=== PATIENT | male | born 1960 | race Caucasian/White ===

== ENCOUNTER 2025-01-25 17:04 | Emergency (ER) | payer BC, SELFPAY ==
[2025-01-25] VITALS (29 sets, daily range): BP systolic 107–159; BP diastolic 84–110; PULSE 62–95; TEMP 36.9; O2SAT 88–98; BMI 35.9
--- NOTE | 2025-01-25 17:22 | CT_ITS ---
The [address] [address] Patient Name: RINA NAVA MRN: [id number] date: 1960 Sex: M Assigned Patient Location: ED.MAIN Current Patient Location: ER Accession/Order Number: [id number] Exam Date: 01/25/2025 19:00 Report Date: 01/25/2025 19:05 At the request of: KRZYSZTOF TERRY MD Procedure: CT abdomen pelvis w con CT ABDOMEN AND PELVIS WITH INTRAVENOUS CONTRAST: CLINICAL HISTORY: Right lower quadrant pain COMPARISON: None TECHNIQUE: Spiral images were obtained through the abdomen and pelvis following the administration of intravenous contrast. This CT exam was performed using one or more following dose reduction techniques: Automated exposure control, adjustment of the mA and/or kV according to patient size, or use of iterative reconstruction technique. FINDINGS: Lung Bases: [Cardiomegaly with coronary artery calcifications and or scarring. Bibasilar parenchymal opacities likely areas of subsegmental atelectasis and/or scarring.] Elevation right hemidiaphragm. Organs:Fatty infiltration of the liver. Spleen, adrenals, gallbladder, pancreas unremarkable. Right renal calculi noted. Mild right-sided hydronephrosis and delayed excretion right kidney is caused by right sided calculus at level of right ureteral pelvic junction measuring 5 mm in size on axial imaging. Left-sided nonobstructive renal calculus 3 mm in size. No left-sided hydronephrosis.[ GI: Duodenal diverticulum. Mild gastric distention. Mild to moderate retained stool throughout the colon. No evidence of bowel obstruction. Unremarkable appendix.[ Pelvis:[Mild bladder wall thickening possibly to under distention, correlate with urinalysis findings. Prostate slightly heterogeneous. Tiny fat-containing inguinal hernias.] Peritoneum/Retroperitoneum:No free air or free fluid. Moderate plaque identified involving the nonaneurysmal aorta.[ Abd wall/Bones:Anterolisthesis L4 there is anterolisthesis lumbosacral junction presumably L5-S1 measuring 1.6 cm in size. There are bilateral pars interarticularis defects with subtle. There is moderate severe to severe bilateral neural from narrowing. Additional multilevel degenerative changes identified throughout the lumbar spine.[ CT/CT abdomen pelvis w con IMPRESSION: Delayed excretion right kidney and right-sided hydronephrosis caused by right ureteral pelvic junction calculi measuring 5 mm in size on the axial images. Impression dictated by: Lizandro Sims M.D. 01/25/2025 7:05 PM Dictation Location: [facility]- Electronically authenticated by: [id number] Y Date: 01/25/2025 19:05
--- NOTE | 2025-01-25 17:22 | ECG_ITS ---
The [facility] Test Date: 2025-01-25 Pat Name: RINA NAVA Department: Room: - Gender: Male Photograph Mounter: : 1960 Requested By: [id number] Order Number: [id number] Reading MD: CHANI KESSLER M.D. Measurements Intervals [place] Rate: 67 P: 56 NE: 164 QRS: 37 QRSD: 82 T: 51 QT: 370 QTc: 386 Interpretive Statements 1100 Sinus rhythm 4068 Nonspecific [place] abnormality 9130 borderline ECG No previous ECG available for comparison Electronically Signed On 01-26-2025 7:39:46 EDT by CHANI KESSLER M.D.
--- NOTE | 2025-01-25 17:25 | ED_ITS ---
Documented by User: Moses Espinoza MD 01/25/25 17:26 HPI HPI - General Adult General Chief complaint: Abdominal Pain Stated complaint: ABDOMINAL PAIN Time Seen by Provider: 01/25/25 17:08 Source: patient Mode of arrival: ambulance History of Present Illness HPI narrative: 64-year-old male presents for abdominal pain. It is in the right lower quadrant and it started this morning. It seemed to get better but now its come back. His is worried about appendicitis. No trauma or fever and he had a normal bowel movement this morning. He has had no hematuria or hematochezia. No vomiting. No previous surgeries on his abdomen. Related Data Allergies Allergy/AdvReac Type Severity Reaction Status Date / Time No Known Drug Allergies Allergy Verified 01/25/25 17:10 Opioid HPI Opioid Management Most Recent Opioid Data: Last Pain Scale 10 Today, 18:54 Last MAR Pain Assessment Today, 17:58 Review of Systems ROS Narrative A ten point review of systems is negative except as noted above. PFSH PFSH Social History Little interest or pleasure in doing things: not at all Feeling down, depressed, or hopeless: not at all Exam Narrative Exam Narrative: Nurses note and vital signs reviewed and patient is not hypoxic. General: The patient appears mildly uncomfortable. Skin: Warm, dry, no pallor noted. There is no rash noted. Head: Normocephalic, atraumatic Eye: Normal conjunctiva, no drainage Ears, Nose, Mouth, and Throat: oral mucosa is moist. Nares patent. Cardiovascular: Regular Rate and Rhythm Respiratory: Patient is in no distress, no accessory muscle use, lungs are clear to auscultation, no wheezing, rales or rhonchi Back: non-tender GI: He has tenderness in the right lower quadrant. No mass. No rebound or guarding. Musculoskeletal: The patient has no evidence of calf tenderness, no pitting edema, symmetrical pulses noted bilaterally Neurological: A&O, normal speech Psychiatric: Cooperative Constitutional Vital Signs, click to edit/add: Last Vital Signs Temp 98.4 F 01/25/25 17:05 Pulse 91 H 01/25/25 20:00 Resp 14 01/25/25 20:00 BP 159/110 H 01/25/25 19:30 Pulse Ox 91 L 01/25/25 20:00 O2 Del Method Room Air 01/25/25 17:05 Course Vital Signs Vital signs: Vital Signs Temperature 98.4 F 01/25/25 17:05 Pulse Rate 73 01/25/25 17:05 Respiratory Rate 22 H 01/25/25 17:05 Blood Pressure 149/94 H 01/25/25 17:05 Pulse Oximetry 98 01/25/25 17:05 Oxygen Delivery Method Room Air 01/25/25 17:05 Temperature 98.4 F 01/25/25 17:05 Pulse Rate 91 H 01/25/25 20:00 Respiratory Rate 14 01/25/25 20:00 Blood Pressure 159/110 H 01/25/25 19:30 Pulse Oximetry 91 L 01/25/25 20:00 Oxygen Delivery Method Room Air 01/25/25 17:05 Medical Decision Making Lab Data Labs: Lab Results 01/25/25 01/25/25 Range/Units 17:29 17:38 WBC 8.1 (4.0-11.0) 10^3/uL RBC 4.85 (4.70-6.10) 10^6/uL Hgb 15.4 (14.0-18.0) g/dL Hct 44.0 (42.0-54.0) % MCV 90.7 (80.0-94.0) fL MCH 31.8 (25.9-34.0) pg MCHC 35.0 (29.9-35.2) g/dL RDW 12.2 (11.0-15.0) % Plt Count 197 (150-450) 10^3/uL MPV 9.8 (9.5-13.5) fL Neut % (Auto) 79.8 H (43.0-75.0) % Lymph % (Auto) 12.3 L (20.5-60.0) % [place] % (Auto) 6.6 (1.7-12.0) % Eos % (Auto) 0.6 L (0.9-7.0) % Baso % (Auto) 0.5 (0.2-2.0) % Neut # (Auto) 6.5 (1.4-6.5) 10^3/uL Lymph # (Auto) 1.0 L (1.2-3.8) 10^3/uL [place] # (Auto) 0.5 (0.3-0.8) 10^3/uL Eos # (Auto) 0.1 (0.0-0.7) 10^3/uL Baso # (Auto) 0.0 (0.0-0.1) 10^3/uL Abs Immat Gran (auto) 0.02 (0.00-0.03) 10^3/uL Imm/Tot Granulo (auto) 0.2 (0.0-0.5) % Sodium 141 (136-145) mmol/L Potassium 4.1 (3.5-5.1) mmol/L Chloride 102 (98-107) mmol/L Carbon Dioxide 29.9 (21.0-32.0) mmol/L Anion Gap 13.2 BUN 24.0 H (7.0-18.0) mg/dL Creatinine 1.14 (0.70-1.30) mg/dL Est GFR ( Amer) >60 (>=60 mL/min/1.73m^2) Est GFR (Non-Af Amer) >60 (>=60 mL/min/1.73m^2) BUN/Creatinine Ratio 21.1 Glucose 151 H (74-106) mg/dL Calcium 9.4 (8.5-10.1) mg/dL Total Bilirubin 0.9 (0.2-1.0) mg/dL Direct Bilirubin 0.2 (0.0-0.2) mg/dL AST 49 H (15-37) U/L ALT 90 H (16-63) U/L Alkaline Phosphatase 61 (46-116) U/L Total Protein 7.4 (6.4-8.2) g/dL Albumin 4.0 (3.4-5.0) g/dL Globulin 3.4 g/dL Albumin/Globulin Ratio 1.2 Amylase 24 L (25-115) U/L Lipase 28.0 (16.0-77.0) U/L Urine Color Yellow (YELLOW) Urine Clarity Clear (CLEAR) Urine pH 6.0 (5.0-9.0) Ur Specific [place] 1.025 (1.005-1.025) Urine Protein Negative (NEG/TRACE) mg/dL Urine Glucose (UA) Negative (NEGATIVE) mg/dL Urine Ketones Negative (NEGATIVE) mg/dL Urine Occult Blood Large A (NEGATIVE) Urine Nitrite Negative (NEGATIVE) Urine Bilirubin Negative (NEGATIVE) Urine Urobilinogen 0.2 (0.2-1.0) EU/dL Ur Leukocyte Esterase Negative (NEGATIVE) Urine RBC 75-100 A (0-2) #/HPF Urine WBC 0-2 A (NONE SEEN) #/HPF Ur Squamous Epith Cells Rare (NONE/RARE) #/LPF Urine Crystals None seen (None Seen) #/HPF Urine Bacteria Small A (NONE SEEN) #/HPF Urine Casts None seen (NONE SEEN) #/LPF Urine Mucus Moderate A (NONE SEEN) Ur Culture Indicated? Yes-[facility] Imaging Data CT scan - abdomen: Radiologist's impression: ITS Impressions Abdomen/Pelvis CT 01/25/25 17:22 IMPRESSION: Delayed excretion right kidney and right-sided hydronephrosis caused by right ureteral pelvic junction calculi measuring 5 mm in size on the axial images. Impression dictated by: Lizandro Sims M.D. 01/25/2025 7:05 PM Dictation Location: [employer] Electronically authenticated by: [id number] Y Date: 01/25/2025 19:05 Discharge Plan Discharge Chief Complaint: Abdominal Pain Clinical Impression: Calculus of kidney Patient Disposition: [facility] Time of Disposition Decision: 20:41 Discharge Location: [facility] Condition: Good Mode of Transportation: EMS Documented by User: Clarence Gregorio DO 01/25/25 21:32 HPI HPI - General Adult General Chief complaint: Abdominal Pain Stated complaint: ABDOMINAL PAIN Time Seen by Provider: 01/25/25 17:08 Related Data Allergies Allergy/AdvReac Type Severity Reaction Status Date / Time No Known Drug Allergies Allergy Verified 01/25/25 17:10 Opioid HPI Opioid Management Most Recent Opioid Data: Last Pain Scale 10 Today, 18:54 Last MAR Pain Assessment Today, 17:58 PFSH PFSH Social History Little interest or pleasure in doing things: not at all Feeling down, depressed, or hopeless: not at all Exam Constitutional Vital Signs, click to edit/add: Last Vital Signs Temp 98.4 F 01/25/25 17:05 Pulse 91 H 01/25/25 20:00 Resp 14 01/25/25 20:00 BP 159/110 H 01/25/25 19:30 Pulse Ox 91 L 01/25/25 20:00 O2 Del Method Room Air 01/25/25 17:05 Course Vital Signs Vital signs: Vital Signs Temperature 98.4 F 01/25/25 17:05 Pulse Rate 73 01/25/25 17:05 Respiratory Rate 22 H 01/25/25 17:05 Blood Pressure 149/94 H 01/25/25 17:05 Pulse Oximetry 98 01/25/25 17:05 Oxygen Delivery Method Room Air 01/25/25 17:05 Temperature 98.4 F 01/25/25 17:05 Pulse Rate 91 H 01/25/25 20:00 Respiratory Rate 14 01/25/25 20:00 Blood Pressure 159/110 H 01/25/25 19:30 Pulse Oximetry 91 L 01/25/25 20:00 Oxygen Delivery Method Room Air 01/25/25 17:05 Medical Decision Making MDM Narrative Medical decision making narrative: Patient is a 64-year-old male, signed out to me by Dr. Hurtado, for evaluation of suspected urolithiasis. His vital signs are within normal limits. He is afebrile and hemodynamically stable. On my examination, his abdomen is soft and nonperitoneal take. He is laying in the stretcher, and appears quite uncomfortable. He has received multiple rounds of analgesics, with only minimal improvement of his pain. CT abdomen/pelvis demonstrated 5 mm stone in the right ureteropelvic junction with right hydronephrosis. His laboratory studies were negative for urinary tract infection, acute renal injury, or significant leukocytosis. Given his intractable pain and inability to tolerate PO, I do think he warrants admission. I did discuss the patient with on-call urologist who recommended transfer to [facility] for possible operative intervention. Urology is unable to operate here on the weekends. I did discuss the patient with Dr. Ji, hospitalist at [facility], who accepted the patient to his service. Differential Diagnosis Differential Diagnosis: Urolithiasis, UTI, kidney injury Medical Records Medical records reviewed: Yes I reviewed the patient's medical records Lab Data Lab results reviewed: Yes I reviewed the patient's lab results Labs: Lab Results 01/25/25 01/25/25 Range/Units 17:29 17:38 WBC 8.1 (4.0-11.0) 10^3/uL RBC 4.85 (4.70-6.10) 10^6/uL Hgb 15.4 (14.0-18.0) g/dL Hct 44.0 (42.0-54.0) % MCV 90.7 (80.0-94.0) fL MCH 31.8 (25.9-34.0) pg MCHC 35.0 (29.9-35.2) g/dL RDW 12.2 (11.0-15.0) % Plt Count 197 (150-450) 10^3/uL MPV 9.8 (9.5-13.5) fL Neut % (Auto) 79.8 H (43.0-75.0) % Lymph % (Auto) 12.3 L (20.5-60.0) % [place] % (Auto) 6.6 (1.7-12.0) % Eos % (Auto) 0.6 L (0.9-7.0) % Baso % (Auto) 0.5 (0.2-2.0) % Neut # (Auto) 6.5 (1.4-6.5) 10^3/uL Lymph # (Auto) 1.0 L (1.2-3.8) 10^3/uL [place] # (Auto) 0.5 (0.3-0.8) 10^3/uL Eos # (Auto) 0.1 (0.0-0.7) 10^3/uL Baso # (Auto) 0.0 (0.0-0.1) 10^3/uL Abs Immat Gran (auto) 0.02 (0.00-0.03) 10^3/uL Imm/Tot Granulo (auto) 0.2 (0.0-0.5) % Sodium 141 (136-145) mmol/L Potassium 4.1 (3.5-5.1) mmol/L Chloride 102 (98-107) mmol/L Carbon Dioxide 29.9 (21.0-32.0) mmol/L Anion Gap 13.2 BUN 24.0 H (7.0-18.0) mg/dL Creatinine 1.14 (0.70-1.30) mg/dL Est GFR ( Amer) >60 (>=60 mL/min/1.73m^2) Est GFR (Non-Af Amer) >60 (>=60 mL/min/1.73m^2) BUN/Creatinine Ratio 21.1 Glucose 151 H (74-106) mg/dL Calcium 9.4 (8.5-10.1) mg/dL Total Bilirubin 0.9 (0.2-1.0) mg/dL Direct Bilirubin 0.2 (0.0-0.2) mg/dL AST 49 H (15-37) U/L ALT 90 H (16-63) U/L Alkaline Phosphatase 61 (46-116) U/L Total Protein 7.4 (6.4-8.2) g/dL Albumin 4.0 (3.4-5.0) g/dL Globulin 3.4 g/dL Albumin/Globulin Ratio 1.2 Amylase 24 L (25-115) U/L Lipase 28.0 (16.0-77.0) U/L Urine Color Yellow (YELLOW) Urine Clarity Clear (CLEAR) Urine pH 6.0 (5.0-9.0) Ur Specific [place] 1.025 (1.005-1.025) Urine Protein Negative (NEG/TRACE) mg/dL Urine Glucose (UA) Negative (NEGATIVE) mg/dL Urine Ketones Negative (NEGATIVE) mg/dL Urine Occult Blood Large A (NEGATIVE) Urine Nitrite Negative (NEGATIVE) Urine Bilirubin Negative (NEGATIVE) Urine Urobilinogen 0.2 (0.2-1.0) EU/dL Ur Leukocyte Esterase Negative (NEGATIVE) Urine RBC 75-100 A (0-2) #/HPF Urine WBC 0-2 A (NONE SEEN) #/HPF Ur Squamous Epith Cells Rare (NONE/RARE) #/LPF Urine Crystals None seen (None Seen) #/HPF Urine Bacteria Small A (NONE SEEN) #/HPF Urine Casts None seen (NONE SEEN) #/LPF Urine Mucus Moderate A (NONE SEEN) Ur Culture Indicated? Yes-[facility] Imaging Data CT scan - abdomen: Attestation: I personally reviewed and interpreted this imaging study as follows: Radiologist's impression: ITS Impressions Abdomen/Pelvis CT 01/25/25 17:22 IMPRESSION: Delayed excretion right kidney and right-sided hydronephrosis caused by right ureteral pelvic junction calculi measuring 5 mm in size on the axial images. Impression dictated by: Lizandro Sims M.D. 01/25/2025 7:05 PM Dictation Location: [place] [address] Electronically authenticated by: [id number] Y Date: 01/25/2025 19:05 Discharge Plan Discharge Chief Complaint: Abdominal Pain Clinical Impression: Calculus of kidney Patient Disposition: [facility] Time of Disposition Decision: 20:41 Discharge Location: [facility] Condition: Good Mode of Transportation: EMS
[2025-01-25 17:34] LABS: Hematocrit 44.0 % (42.0-54.0); Hemoglobin 15.4 g/dL (14.0-18.0); Immature Granulocytes Abs Auto 0.02 10^3/uL (0.00-0.03); Immature Granulocytes Pct Auto 0.2 % (0.0-0.5); Lymphocytes Absolute Auto 1.0 10^3/uL (1.2-3.8); Mean Corpuscular HGB Conc 35.0 g/dL (29.9-35.2); Mean Corpuscular Hemoglobin 31.8 pg (25.9-34.0); Mean Corpuscular Volume 90.7 fL (80.0-94.0); Platelet Count 197 10^3/uL (150-450); Red Blood Count 4.85 10^6/uL (4.70-6.10); White Blood Count 8.1 10^3/uL (4.0-11.0)
[2025-01-25 17:48] LABS: Alanine Aminotransferase 90 U/L (16-63); Albumin Globulin Ratio 1.2; Albumin Level 4.0 g/dL (3.4-5.0); Alkaline Phosphatase 61 U/L (46-116); Amylase 24 U/L (25-115); Anion Gap 13.2; Aspartate Amino Transferase 49 U/L (15-37); Blood Urea Nitrogen 24.0 mg/dL (7.0-18.0); Calcium 9.4 mg/dL (8.5-10.1); Carbon Dioxide 29.9 mmol/L (21.0-32.0); Chloride 102 mmol/L (98-107); Estimated GFR (African America >60 (>=60 mL/min/1.73m^2); Estimated GFR (Non-African Ame >60 (>=60 mL/min/1.73m^2); Globulin 3.4 g/dL; Glucose 151 mg/dL (74-106); Lipase 28.0 U/L (16.0-77.0); Potassium 4.1 mmol/L (3.5-5.1); Sodium 141 mmol/L (136-145); Total Protein 7.4 g/dL (6.4-8.2)
[2025-01-25 17:56] LABS: Glucose Urine UA NEGATIVE (NEGATIVE)
[2025-01-25] MEDS: MORPHINE SULFATE 4 MG/ML VIAL IV (17:58)
[2025-01-25 18:05] LABS: Cast Seen? NONE SEEN #/LPF (NONE SEEN); Crystals Seen? None Seen #/HPF (None Seen); Urine Culture Indicated YES-FRMC
[2025-01-25] MEDS: HYDROMORPHONE HCL 1 MG/ML CARTRIDGE IV (18:54)
[2025-01-25] MEDS: KETOROLAC TROMETHAMINE 30 MG/ML VIAL IVP (19:40)
[2025-01-25] MEDS: 0.9 % SODIUM CHLORIDE 1,000 ML 1000 ML IV (19:41)
--- NOTE | 2025-01-25 23:32 | PC.NURSE ---
IV SL and patient transferred [place] [facility] [place] intact.
== END 2025-01-25 23:20 | disposition short-term general hospital (02) ==
PROVIDERS: Emergency Medicine; Emergency Provider Student in an Organized Health Care Education/Training Program
DX: N20.0 Calculus of kidney (principal); R10.31 Right lower quadrant pain; N13.30 Unspecified hydronephrosis
CPT/HCPCS: 36415; 74177; 80048; 80076; 81001; 82150; 83690; 85025; 87086; 93005; 96374; 96375; 99285; J1171; J1885; J2270; J2405; Q9967